=== PATIENT | female | born 1995 | race Two or more races ===

== ENCOUNTER 2021-08-07 09:06 | Outpatient (REF) | payer OTHER, SELFPAY ==
[2021-08-07 09:54] LABS: COVID-19 Test Negative (Negative); IDNOW Serial# 16C4AD1C
== END 2021-08-07 09:07 | disposition home or self-care (01) ==
LOC: HO.LAB 09:06
PROVIDERS: Visit Provider Internal Medicine
DX: Z20.822 Contact with and (suspected) exposure to COVID-19 (principal)
CPT/HCPCS: 36415; 87635; C9803

== ENCOUNTER 2024-02-24 10:11 | Outpatient (AMB) | payer OTHER, SELFPAY ==
--- NOTE | 2024-02-24 10:42 | MHC.OFFWIV ---
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 Started yesterday. 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 While every effort has been made to ensure accuracy, neonatal pediatric nurse errors may have been included. The patient is a 28 year old female who presents to the clinic today with 2 day history of right ankle and lower leg pain after a fall. She slipped and the right ankle hyperextended and then landed hard on her foot. She has pain in the ankle on the right as well as lateral lower leg. She has tried ice and ibuprofen which slightly helped the pain. She is ambulating with a limp. [facility] Social History Patient Tobacco Use Status: Never used Tobacco Review of Systems Const All systems reviewed & are unremarkable except as noted in HPI and below Physical Exam Vital Signs: Last Vital Signs Temp 98.4 F 02/24/24 10:43 Pulse 89 02/24/24 10:43 BP 110/74 02/24/24 10:43 Pulse Ox 99 02/24/24 10:43 Oxygen Delivery Method Room Air 02/24/24 10:43 BMI result Body Mass Index 29.4 Const General: cooperative, healthy appearing, comfortable, no acute distress and alert Orientation/consciousness: patient oriented x3 Limitations: no limitations Skin General skin exam: no rashes or lesions noted, elasticity normal and turgor normal Neuro General: patient oriented x3 Extrem Other: TTP posterior to right lateral maleoulus and to right lateral lower leg. Negative Homans. Strength 5/5 equal bilaterally. General: Yes full ROM, Yes capillary refill normal, Yes normal exam except as noted, No normal gait (antalgic on right) and Yes edema (nonpitting posterior maleolus) Psych Appearance: grossly normal Mental Status: mental status grossly normal Speech and movement: Normal speech and movement present Affect: normal affect Assessment & Plan Assessment & Plan (1) Ankle pain, right: Code(s): M25.571 - Pain in right ankle and joints of right foot Qualifiers: Chronicity: acute Qualified Code(s): M25.571 - Pain in right ankle and joints of right foot Plan: Appears to be low grade sprain, however will obtain x-ray given nature of injury. Pk wrap applied. Advised rest, ice, compression, elevation, and NSAIDs use [id number]. Letter provided for work for rest and leg elevation. Advised follow-up with worsening, or failure to resolve after 2 weeks. Xray results reviewed, no obvious fracture or deformity, awaiting radiology official read. (2) Right leg pain: Code(s): M79.604 - Pain in right leg Plan: We will obtain x-ray to rule out fracture, which if present we will refer to orthopedics. (3) Fall: Code(s): W19.XXXA - Unspecified fall, initial encounter Qualifiers: Encounter type: initial encounter Qualified Code(s): W19.XXXA - Unspecified fall, initial encounter Plan: Mechanical in nature. Advised to increase awareness of surroundings to avoid additional falls. Plan See above for full details and plan. Orders: Orders XR tibia fibula RT 2V Today M79.604 - Pain in right leg Coding Level of Care Code Est Pt Level 4 (33467) Diagnoses Acute right ankle pain M25.571 Chronicity: acute Right leg pain M79.604 Fall, initial encounter W19.XXXA Encounter type: initial encounter
[2024-02-24 10:43] VITALS: BP 110/74; PULSE 89; TEMP 36.9; O2SAT 99; BMI 29.4
== END 2024-02-24 12:19 | disposition home or self-care (01) ==
PROVIDERS: Visit Provider Registered Nurse
DX: M25.571 Pain in right ankle and joints of right foot (principal); M79.604 Pain in right leg; W19.XXXA Unspecified fall, initial encounter
CPT/HCPCS: 99214

== ENCOUNTER 2024-02-24 11:39 | Outpatient (REF) | payer OTHER, SELFPAY ==
--- NOTE | ~2024-02-24 | XR_ITS ---
EXAMINATION: RIGHT TIB-FIB, RIGHT ANKLE CLINICAL INFORMATION: Pain and swelling after injury to posterior lateral malleolus COMPARISON: None available. TECHNIQUE: 3 views ankle, 2 views tib-fib FINDINGS: No significant bone, joint or soft tissue abnormality is seen. XR/XR tibia fibula RT 2V IMPRESSION: Negative exam.
--- NOTE | ~2024-02-24 | XR_ITS ---
EXAMINATION: RIGHT TIB-FIB, RIGHT ANKLE CLINICAL INFORMATION: Pain and swelling after injury to posterior lateral malleolus COMPARISON: None available. TECHNIQUE: 3 views ankle, 2 views tib-fib FINDINGS: No significant bone, joint or soft tissue abnormality is seen. XR/XR ankle RT min 3V IMPRESSION: Negative exam.
== END 2024-02-24 11:40 | disposition home or self-care (01) ==
LOC: HO.HMGCX 11:39
PROVIDERS: Visit Provider Registered Nurse
DX: M79.604 Pain in right leg (principal); M25.571 Pain in right ankle and joints of right foot
CPT/HCPCS: 73590; 73610

== ENCOUNTER 2024-10-17 12:36 | Outpatient (AMB) | payer OTHER, SELFPAY ==
--- OUTSIDE RECORDS SUMMARY | 2024-10-17 12:38 | XMS_ITS | Encounter Summary ---
Author Organization [facility] Address [address] [place] [address] Care Team Providers Care Stock Shaper Name Role Phone Jefferson Orona MD Primary Care Pr ovider Reason for Visit * Reason Comments Hypertension Pt here with c/o htn and dizziness Encounter Details Date Type Department Care Team (Late st Contact Info) Description 09/18/2024 4:22 PM EST - 09/18/2024 7:32 PM EST Emergency [facility] Emergency [address] [place] [address] Discharge Disposition: Home or Self Care Social History Tobacco Use Types Packs/Day Years Used Date Smoking Tobacco: Never Smokeless Tobacco: Never Alcohol Use Standard Drinks/Week Comments No 0 (1 standard drink = 0.6 oz pur e alcohol) Comments Unknown Sex and Gender Information Value Date Recorded Sex Assigned at Female 09/18/2024 7:24 PM EST Legal Sex Female 4:57 PM EST Gender Identity Female 09/18/2024 7:24 PM EST Sexual Orientation Straight 09/18/2024 7: 24 PM EST documented as of this encounter Last Filed Vital Signs Vital Sign Reading Time Taken Comments Blood Pressure 122/81 09/18/2024 5:00 PM EST Pulse 83 09/18/2024 5:00 PM EST Temperature 36.9 ??C (98.4 ??F) 09/18/2024 5:00 PM ES T Respiratory Rate 16 09/18/2024 5:00 PM EST Oxygen Saturation - - Inhaled Oxygen Concentration - - Weight 68 kg (150 lb) 09/18/2024 5:00 PM EST Height 160 cm (5' 3 ) 09/18/2024 5:00 PM EST Body Mass Index 26.57 09/18/2024 5:00 PM EST documented in this encounter Medications at Time of Discharge albuterol HFA (PROAIR HFA ; PROVENTIL HFA ; VENTOLIN HFA) 90 mcg/actuation inhaler Inhale 2 puffs by mouth every 4 (four) hours if needed (Cough or Wheezing). 12/24/2022 clotrimazole-bet amethasone (LOTRISONE) 1-0.05 % cream APPLY TO AFFECTED AREA TWICE A DAY FOR 14 DAYS 04/03/2024 10/13/2024 documented as of this encounter Discharge Disposition Disposition Code Departure Means Destination Home or Self Care documented in this encounter Progress Notes * Art Moulton RN - 09/18/2024 4:58 PM EST Patient states she got dizzy at work and they took her blood pressure and sbp was 150. They sent her home from work and she came to e.[facility]ahraa [facility] n/v/ she does have a headache . documented in this encounter Plan of Treatment Upcoming Encounters Date Type Department Care Team (Late st Contact Info) Description 10/15/2025 8:00 AM EDT Office Visit Adult Medicine [address] [phone] Jefferson Orona MD [address] [place] [id number] Scheduled Orders Name Type Priority Associated Diagnoses Orde r Schedule ECG 12 lead ECG STAT Once for 1 Oc currences starting 09/18/2024 until 09/18/2024 documented as of this encounter Procedures Procedure Name Priority Date/Time Associated Diagnosis Comments XR CHEST 2 VIEWS STAT 09/18/2024 5:27 PM EST [id number], RSV, FLU A AND B QUALITATIVE RT-PCR, INTERNAL LAB STAT 09/18/2024 5:07 PM EST TROPONIN I HIGH SENSITIVITY STAT 09/18/2024 5:07 PM EST CBC WITH AUTO DIFFERENTIAL STAT 09/18/2024 5:07 PM EST CBC AND DIFFERENTIAL STAT 09/18/2024 5:07 PM EST COMPREHENSIVE METABOLIC PANEL STAT 09/18/2024 5:07 PM EST documented in this encounter Results * XR Chest 2 Views (09/18/2024 5:27 PM EST) Anatomical Region Laterality Modality Body Radiographic Jessy ging 09/18/2024 5:49 PM EST Impressions 09/18/2024 5:49 PM EST FINDINGS/IMPRESSION: NO ACUTE FINDINGS. Normal heart size and pulmonary vascularity. ??Lungs are clear and costophrenic angles are sharp. ??No acute osseous abnormality. -------- FINAL REPORT -------- Dictated By: Lilia Mendez Dictated Date: 09/18/2024 17:49 ET Assigned Physician: Lilia Mendez Reviewed and Electronically Signed By: Lilia Mendez Signed Date: 09/18/2024 17:49 ET Workstation ID: [id number] Transcribed By: Self Edit Transcribed Date: 09/18/2024 17:49 ET Narrative 09/18/2024 5:49 PM EST XR CHEST 2 VIEWS INDICATION: pain TECHNIQUE: XR CHEST 2 VIEWS COMPARISON: No priors available. Procedure Note Lilia Mendez MD - 09/18/2024 XR CHEST 2 VIEWS INDICATION: pain TECHNIQUE: XR CHEST 2 VIEWS COMPARISON: No priors available. IMPRESSION: FINDINGS/IMPRESSION: NO ACUTE FINDINGS. Normal heart size and pulmonary vascularity. Lungs are clear andcostophrenic angles are sharp. No acute osseous abnormality. -------- FINAL REPORT -------- Dictated By: Lilia Mendez Dictated Date: 09/18/2024 17:49 ET Assigned Physician: Lilia Mendez Reviewed and Electronically Signed By: Lilia Mendez Signed Date: 09/18/2024 17:49 ET Workstation ID: [id number] Transcribed By: Self Edit Transcribed Date: 09/18/2024 17:49 ET Morelia Lio Lefty Perera DO IMG XR PROCEDURES Final R esult * Troponin I high sensitivity (09/18/2024 5:07 PM EST) [facility] High Sensitivity Troponin I <3 <=54 ng/L LAB CHEMISTRY METHOD 09/18/2024 6:[address] [facility] Blood Venous blood specimen / Unknown Venipuncture / Unknown 09/18/2024 5:07 PM EST 09/18/2024 5:[address] [facility] - 09/18/2024 6:01 PM EST High levels of biotin in samples may falsely decrease hsTroponin values. ??Use caution when interpreting hsTroponin results in patients taking biotin who exhibit renal impairment (eGFR <60) or in patients taking more than 20 mg/day of biotin. Morelia Perera DO LAB BLOOD ORDERABLES Becki l Result [facility] [address] [place] [address], [place] [phone] * (ABNORMAL) CBC auto differential (09/18/2024 5:07 PM EST) [facility] WBC 9.6 4.8 - 10.8 K/mcL LAB HEMETOLOGY METHOD 09/18/2024 5:[address] [facility] RBC 4.30 3.80 - 4.80 M/mcL LAB HEMETOLOGY METHOD 09/18/2024 5:[address] [facility] Hemoglobin 10.5(L) 11.5 - 16.0 g/dL LAB HEMETOLOGY METHOD 09/18/2024 5:[address] [facility] Hematocrit 34.1(L) 35.0 - 47.0 % LAB HEMETOLOGY METHOD 09/18/2024 5:36 PM [facility] MCV 78.6(L) 79.0 - 98.0 FL LAB HEMETOLOGY METHOD 09/18/2024 5:36 PM [facility] MCH 24.2(L) 27.0 - 32.0 pcg LAB HEMETOLOGY METHOD 09/18/2024 5:36 PM [facility] MCHC 30.8(L) 32.0 - 37.0 g/dL LAB HEMETOLOGY METHOD 09/18/2024 5:36 PM [facility] RDW 13.4 11.0 - 15.0 % LAB HEMETOLOGY METHOD 09/18/2024 5:36 PM [facility] Platelets 246 130 - 400 K/mcL LAB HEMETOLOGY METHOD 09/18/2024 5:36 PM [facility] MPV 12.1(H) 7.0 - 11.0 FL LAB HEMETOLOGY METHOD 09/18/2024 5:36 PM [facility] NRBC 0.0 <1.0 % LAB HEMETOLOGY METHOD 09/18/2024 5:36 PM [facility] NRBC Absolute 0.00 <0.10 K/mcL LAB HEMETOLOGY METHOD 09/18/2024 5:36 PM [facility] Neutrophils Relative 66.0 % LAB HEMETOLOGY METHOD 09/18/2024 5:36 PM [facility] Lymphocytes Relative 24.7 % LAB HEMETOLOGY METHOD 09/18/2024 5:36 PM [facility] Monocytes Relative 7.4 % LAB HEMETOLOGY METHOD 09/18/2024 5:36 PM [facility] Eosinophils Relative 0.8 % LAB HEMETOLOGY METHOD 09/18/2024 5:36 PM [facility] Basophils Relative 0.7 % LAB HEMETOLOGY METHOD 09/18/2024 5:[address] [facility] Immature Granulocytes Relative 0.4 % LAB HEMETOLOGY METHOD 09/18/2024 5:36 PM [facility] Neutrophils Absolute 6.31 1.50 - 7.00 K/mcL LAB HEMETOLOGY METHOD 09/18/2024 5:[address] [facility] Lymphocytes Absolute 2.37 1.00 - 5.00 K/mcL LAB HEMETOLOGY METHOD 09/18/2024 5:[address] [facility] Monocytes Absolute 0.71 0.20 - 1.00 K/mcL LAB HEMETOLOGY METHOD 09/18/2024 5:[address] [facility] Eosinophils Absolute 0.08 0.00 - 0.50 K/mcL LAB HEMETOLOGY METHOD 09/18/2024 5:[address] [facility] Basophils Absolute 0.07 0.00 - 0.20 K/mcL LAB HEMETOLOGY METHOD 09/18/2024 5:36 PM [facility] Immature Granulocytes Absolute 0.04(H) 0.00 - 0.03 K/mcL LAB HEMETOLOGY METHOD 09/18/2024 5:[address] [facility] Blood Venous blood specimen / Unknown Venipuncture / Unknown 09/18/2024 5:07 PM EST 09/18/2024 5:29 PM EST us Morelia Perera DO LAB BLOOD ORDERABLES Becki l Result [facility] [address] [place] [address], * [id number], RSV, Influenza A and B qualitative RT-PCR (09/18/2024 5:07 PM EST) Pathologist [facility] Influenza A PCR Not Detected Not Detected LAB MICROBIOLOGY METHOD 09/18/2024 6:[address] [facility] Influenza B PCR Not Detected Not Detected LAB MICROBIOLOGY METHOD 09/18/2024 6:[address] [facility] RSV PCR Not Detected Not Detected LAB MICROBIOLOGY METHOD 09/18/2024 6:[address] [facility] SARS COV-2 Not Detected Not Detected LAB MICROBIOLOGY METHOD 09/18/2024 6:08 PM [facility] Swab Both anterior nares / Unknown Non-blood Collection / Unknown 09/18/2024 5:07 PM EST 09/18/2024 5:[address] [facility] - 09/18/2024 6:08 PM EST Disclaimer: ??Testing was performed using the [employer] GeneXpert Xpress SARS-CoV-2 _Flu_RSV PLUS PCR assay. ??The manner in which this information is used to guide patient care is the responsibility of the healthcare provider. ??Results should be correlated with the clinical history, epidemiological data, and other data available to the clinician evaluating the patient. ??Negative results do not preclude infection. ??This test has been authorized by the FDA under an Emergency Use Authorization (EUA). ??This test is only authorized for the duration of time the declaration that circumstances exist justifying the authorization of the emergency use of in vitro diagnostic tests for detection of SARS-CoV-2 virus and/or diagnosis of COVID-19 infection under section 564 (b) (1) of the Act, 21 U.S.C 360bbb-3 (b) (1), unless the authorization is terminated or revoked sooner. ?? Reference Range: Not Detected Fact sheet for Healthcare providers can be found at https://www.fda.gov/media/231497/download. ?? Fact sheet for Healthcare patients can be found at https://www.fda.gov/media/554171/download. Morelia Perera DO LAB MICROBIOLOGY - GENERA L ORDERABLES Final Result [facility] [address] [place] [address], [place] [phone] * (ABNORMAL) Comprehensive metabolic panel (09/18/2024 5:07 PM EST) Sodium 136 133 - 145 mmol/L LAB CHEMISTRY METHOD 09/18/2024 6:08 PM [facility] Potassium 3.7 3.5 - 5.5 mmol/L LAB CHEMISTRY METHOD 09/18/2024 6:08 PM [facility] Chloride 108 96 - 110 mmol/L LAB CHEMISTRY METHOD 09/18/2024 6:08 PM [facility] CO2 25 21 - 32 mmol/L LAB CHEMISTRY METHOD 09/18/2024 6:08 PM [facility] Anion Gap 3 3 - 11 LAB CHEMISTRY METHOD 09/18/2024 6:08 PM [facility] Glucose 83 70 - 100 mg/dL LAB CHEMISTRY METHOD 09/18/2024 6:08 PM [facility] BUN 14 5 - 25 mg/dL LAB CHEMISTRY METHOD 09/18/2024 6:08 PM [facility] Creatinine 0.74 0.50 - 1.10 mg/dL LAB CHEMISTRY METHOD 09/18/2024 6:08 PM [facility] eGFR 114 >=60 mL/min/1. 73m2 LAB CHEMISTRY METHOD 09/18/2024 6:08 PM [facility] Comment:Calculation based on the??Chronic Kidney Disease Epidemiology Collaboration (CKD-EPI) equation refit??without adjustment for race. BUN/Creatinine Ratio 18.9 LAB CHEMISTRY METHOD 09/18/2024 6:08 PM [facility] Calcium 9.4 8.5 - 10.5 mg/dL LAB CHEMISTRY METHOD 09/18/2024 6:08 PM [facility] AST (SGOT) 17 10 - 42 unit/L LAB CHEMISTRY METHOD 09/18/2024 6:08 PM [facility] ALT (SGPT) 14 10 - 60 unit/L LAB CHEMISTRY METHOD 09/18/2024 6:[address] [facility] Alkaline Phosphatase 29(L) 42 - 121 unit/L LAB CHEMISTRY METHOD 09/18/2024 6:[address] [facility] Total Protein 7.5 6.0 - 8.0 g/dL LAB CHEMISTRY METHOD 09/18/2024 6:[address] [facility] Albumin 4.0 3.2 - 5.0 g/dL LAB CHEMISTRY METHOD 09/18/2024 6:08 PM [facility] Total Bilirubin 0.7 0.0 - 1.4 mg/dL LAB CHEMISTRY METHOD 09/18/2024 6:08 PM [facility] Blood Venous blood specimen / Unknown Venipuncture / Unknown 09/18/2024 5:07 PM EST 09/18/2024 5:29 PM EST us John Lio Perera DO LAB BLOOD ORDERABLES Becki l Result [facility] [address] [place] [address], documented in this encounter Visit Diagnoses Not on filedocumented in this encounter Additional Health Concerns Infection Onset Date Last Indicated Resolved Time Respiratory Rule-Out 09/18/2024 09/18/2024 025 6:08 PM EST COVID-19 Rule-Out 09/18/2024 09/18/2024 09/18/2024 6:08 PM EST documented as of this encounter Care Teams Stock Shaper Relationship Specialty Start Date End Date Jefferson Orona MD [address] [place] [id number] PCP - General 08/02/22 documented as of this encounter
--- OUTSIDE RECORDS SUMMARY | 2024-10-17 12:38 | XMS_ITS | Clinical Summary ---
Author Organization [facility] [address] [facility] Address [address] [place], [place] Phone Care Team Providers Care Director Market Intelligence Name Role Phone Jefferson Orona MD Primary Care Pr ovider Allergies No known active allergies Medications albuterol HFA (PROAIR HFA ; PROVENTIL HFA ; VENTOLIN HFA) 90 mcg/actuation inhaler Inhale 2 puffs by mouth every 4 (four) hours if needed (Cough or Wheezing). 3 Active IRON, FERROUS SULFATE, ORAL Take by mouth 1 (one) time each day. Active clotrimazole-b etamethasone (LOTRISONE) 1-0.05 % cream APPLY TO AFFECTED AREA TWICE A DAY FOR 14 DAYS 4 025 Discontinued Active Problems Problem Noted Date Diagnosed Date Overweight (BMI 25.0-29.9) 12/24/2022 Iron deficiency anemia 10/07/2019 Allergic rhinitis due to pollen 10/07/2019 Acne 10/07/2019 Asthma 03/28/2016 Encounters Date Type Department Care Team Description 10/13/2024 10:58 AM EDT - 10/13/2024 11:59 PM EDT Hospital Encounter ESTHER Velasco [address] [place] [address] Acute right ankle pain Discharge Disposition: Home or Self Care 10/13/2024 10:00 AM EDT Office Visit Adult Medicine [address] [phone] Radha Payne PA Annual physical exam (Primary Dx); Iron deficiency anemia, unspecified iron deficiency anemia type; Acute right ankle pain; Acne, unspecified acne type 09/18/2024 4:22 PM EST - 09/18/2024 7:32 PM EST Emergency [facility] Emergency [address] [place] [address] Discharge Disposition: Home or Self Care from Last 3 Months Immunizations Name Administration Dates Next Due DTaP (Infanrix) 6wks to less than 7yo ,01/06/1999,1997,10/25,1997 [id number] (Pentacel) 2mo to less than 5yo 10/25/1998,1997,1997,08/24 HPV, Quadrivalent 10/19/2009,2009,04/18/20 09 Hepatitis A Pediatric (Havri x; Vaqta) 12mo to less than 19yo 06/18/2012 Hepatitis B Pediatric (Enger ix B; Recombivax HB) to less than 20 yo 04/04/1998,1997,1997 IPV Inactivated polio (Ipol) 6wks and older 06/22/2002,07/05/1998,1997,08/24 Influenza Quadravalent, MDCK , 0.5ml, with preservative (Flucelvax) 6mo and older 07/06/2024,04/26/2017 Influenza trivalent, 0.5mL, preservative free (Fluarix; FluLaval; Fluzone) ages 6mo and older (Afluria) 3 years and older 05/18/2020,05/13/2015 Influenza, Unspecified 07/17/2021 MMR, measles mumps and rubel la Live (Priorix; M-M-R II) 12mo and older 06/20/2002,10/25/1998 Meningococcal MCV4P 05/24/2011 Pfizer SARS-CoV-2 COVID-19, mRNA, LNP-S, preservative free 12/30/2020,12/09/2020 Pneumococcal polysaccharide 23 valent (Pneumovax 23) 2yo and older 01/20/2018 Tdap Tetanus diptheria acell ular pertussis (Boostrix; Adacel) 7yo and older 09/15/2021,05/24/2011 Varicella live (Varivax) 12m o and older 04/18/2009,07/05/1998 Surgical History Surgery Date Site/Laterality Comments TONSILLECTOMY 2002 PROCEDURE: HISTORICAL TONSILLECTOMY OTHER SURGICAL HISTORY 2001 PROCEDURE: ---- OTHER ----; COMMENT: removal right lymphnode post cervical OTHER SURGICAL HISTORY Left PROCEDURE: [place] EXCISION NAIL MATRIX PERMANENT REMOVAL; COMMENT: left hallux lateral border by Dr. Harden OTHER SURGICAL HISTORY 2011 PROCEDURE: HISTORY OTHER; COMMENT: stye removal Medical History Medical History Date Comments Asthma 03/28/2016 DX:Asthma Acne 10/07/2019 DX:Acne Allergic rhinitis due to pollen 10/07/2019 DX:Allergic rhinitis due to pollen Iron deficiency anemia 10/07/2019 DX:Iron d eficiency anemia Dermatophytosis of nail DX:[place] tophytosis of nail Family History Medical History Relation Name Comments Other: Asthma, ADHD Brother Hypertension Father Hypertension Maternal Grandfather Asthma Maternal Grandmother Diabetes Maternal Grandmother Hypertension Maternal Grandmother Other: heart disease Maternal Grandmother Migraines Mother Other: hypotension Mother Diabetes Paternal Grandfather Heart attack Paternal Grandfather Hypertension Paternal Grandfather Asthma Sister 1 Other: thyroid cancer Sister 2 Breast cancer Neg Hx Colon cancer Neg Hx Relation Name Status Comments Brother Father Maternal Grandfather Maternal Grandmother Mother Paternal Grandfather Sister 1 Sister 2 Social History Tobacco Use Types Packs/Day Years Used Date Smoking Tobacco: Never Smokeless Tobacco: Never Tobacco Cessation:Counseling Given: Not Answered Alcohol Use Standard Drinks/Week Comments No 0 (1 standard drink = 0.6 oz pur e alcohol) Food Access & Nutrition Answer Date Rec orded Do you have access to a vari ety of food including fruits and vegetables? Yes 10/13/2024 Access to Healthcare Answer Date Record ed Within the last 3 months, brynn garcia many times did you visit the emergency department for your medical care? 1 10/13/2024 Health Literacy Answer Date Recorded How often do you need to hav e someone help you when you read instructions, pamphlets, or other written material from your doctor or pharmacy? Never 10/13/2024 Caregiver: How often do you need to have someone help you when you read instructions, pamphlets, or other written material from your doctor or pharmacy? Not on file 10/13/2024 Financial Risk Answer Date Recorded How hard is it for you to pa y for the very basics like food, housing, medical care, and air conditioning / heating? Not very hard 10/13/2024 Transportation Answer Date Recorded Has the lack of transportati on kept you from meetings, work, or from getting things needed for daily living? No Has the lack of transportati on kept you from medical appointments or from getting medications? No 10/13/2024 Social Isolation Answer Date Recorded How often do you feel lonely or isolated from th ose around you? Never 10/13/2024 Food Risk Answer Date Recorded Within the past 12 months we worried whether our food would run out before we got money to buy more. Never true 10/13/2024 Within the past 12 months th e food we bought just didn't last and we didn't have money to get more. Never true 10/13/2024 Dependent Care Answer Date Recorded Do you need help finding or paying for care for your loved ones. For example, childbirth educator or elderly care for an older adult? No 10/13/2024 Education Answer Date Recorded Do you think completing more education or training, like finishing a GED, going to college, or learning a trade, would be helpful for you? N/A 10/13/2024 Employment and Income Answer Date Recor ded During the last four weeks, have you been actively looking for work? No 10/13/2024 Living Situation Answer Date Recorded What is your living situation? 0 10/13/2024 Comments No Sex and Gender Information Value Date Recorded Sex Assigned at Female 09/18/2024 7:24 PM EST Legal Sex Female 4:57 PM EST Gender Identity Female 09/18/2024 7:24 PM EST Sexual Orientation Straight 09/18/2024 7: 24 PM EST Obstetrics History Last Filed Vital Signs Vital Sign Reading Time Taken Comments Blood Pressure 125/81 10/13/2024 10:03 AM EDT Pulse 88 10/13/2024 10:03 AM EDT Temperature 36.6 ??C (97.8 ??F) 10/13/2024 10:03 AM E DT Respiratory Rate 14 10/13/2024 10:03 AM EDT Oxygen Saturation 99% 10/13/2024 10:03 AM EDT Inhaled Oxygen Concentration - - Weight 74.8 kg (165 lb) 10/13/2024 10:03 AM EDT Height 162.6 cm (5' 4 ) 10/13/2024 10:03 AM EDT Body Mass Index 28.32 10/13/2024 10:03 AM EDT Plan of Treatment Upcoming Encounters Date Type Department Care Team (Late st Contact Info) Description 10/15/2025 8:00 AM EDT Office Visit Adult Medicine [facility] [address] [place] [phone] Jefferson Orona MD [address] [place] [phone] Health Maintenance Due Date Last Done Comments Hepatitis B Vaccines (3 of 3 - 3-dose series) 05/30/1998 04/04/1998, 1997, 1997 Hepatitis A Vaccines (2 of 2 - 2-dose series) 12/16/2012 06/18/2012 Cervical Cancer Screening: Pap Smear 2018 Pneumococcal Vaccine: Pediatrics (0 to 5 Years) and At-Risk Patients (6 to 64 Years) (2 of 2 - PCV) 01/20/2019 01/20/2018 HIV Screening 07/04/2022 COVID-19 Vaccine ( season) 2024 09/30/2021, 12/30/2020, 12/09/2020 Depression Screening 10/13/2025 10/13/2024, 04/09/20 24 Social Influencers of Health Screening 10/13/2025 10/13/2024 Cholesterol Screening (Lipid Panel) 10/13/2029 10/13/2024, 08/22/2021 DTaP,Tdap,and Td Vaccines (8 - Td or Tdap) 09/15/2031 09/15/2021, 05/24/2011, 06/22/2002, Additional history exists HIB Vaccines Completed 10/25/1998, 12/04, 1997, Additional history exists MMR Vaccines Completed 06/20/2002, 10/25/1998 IPV Vaccines Completed 06/22/2002, 10/04, 07/05/1998, Additional history exists Varicella Vaccines Completed 04/18/2009, 07/05/1998 HPV Vaccines Completed 10/19/2009, 06/05, 04/18/2009 Meningococcal ACWY Vaccine Aged Out 05/24/2011 N o longer eligible based on patient's age to complete this topic Influenza Vaccine Completed 07/06/2024, , 05/10/2022, Additional history exists Hepatitis C Screening Completed 10/13/2024 Meningococcal B Vacine Aged Out No lo nger eligible based on patient's age to complete this topic RSV Immunization Patients Under 20 months Aged Out No longer eligible based on patient's age to complete this topic Procedures Procedure Name Priority Date/Time Associated Diagnosis Comments XR ANKLE 3+ VIEWS RIGHT Routine 10/13/2024 11:06 AM EDT Acute right ankle pain COMPLETE BLOOD COUNT Routine 10/13/2024 10:52 AM EDT Annual physical exam FERRITIN Routine 10/13/2024 10:52 AM EDT Annual physical exam IRON AND TIBC Routine 10/13/2024 10:52 AM EDT Annual physical exam LIPID PANEL WITH REFLEX TO DIRECT LDL Routine 10/13/2024 10:52 AM EDT Annual physical exam COMPREHENSIVE METABOLIC PANEL Routine 10/13/2024 10:52 AM EDT Annual physical exam HEPATITIS C ANTIBODY Routine 10/13/2024 10:52 AM EDT Annual physical exam XR CHEST 2 VIEWS STAT 09/18/2024 5:27 PM EST TROPONIN I HIGH SENSITIVITY STAT 09/18/2024 5:07 PM EST CBC WITH AUTO DIFFERENTIAL STAT 09/18/2024 5:07 PM EST COMPREHENSIVE METABOLIC PANEL STAT 09/18/2024 5:07 PM EST CBC AND DIFFERENTIAL STAT 09/18/2024 5:07 PM EST [id number], RSV, FLU A AND B QUALITATIVE RT-PCR, INTERNAL LAB STAT 09/18/2024 5:07 PM EST DEPRESSION SCREENING Routine 04/09/2024 from Last 3 Months or Most Recently Relevant to Health Maintenance Results * XR Ankle 3+ Views Right (10/13/2024 11:06 AM EDT) Anatomical Region Laterality Modality Lower Extremities, Ankle Right Radiogr aphic Imaging 10/13/2024 5:23 PM EDT Impressions 10/13/2024 5:24 PM EDT No acute findings. -------- FINAL REPORT -------- Dictated By: Miguelina Piper Dictated Date: 10/13/2024 17:23 ET Assigned Physician: Miguelina Piper Reviewed and Electronically Signed By: Miguelina Piper Signed Date: 10/13/2024 17:24 ET Workstation ID: [id number] Transcribed By: Self Edit Transcribed Date: 10/13/2024 17:23 ET Narrative 10/13/2024 5:24 PM EDT RIGHT ANKLE, 3 VIEWS HISTORY: Right ankle pain. PRIORS: None. FINDINGS: No fracture, malalignment, or foreign body is seen. There are superficial varicosities. The ankle mortise appears normally aligned. Procedure Note Miguelina Piper MD - 10/13/2024 RIGHT ANKLE, 3 VIEWS HISTORY: Right ankle pain. PRIORS: None. FINDINGS: No fracture, malalignment, or foreign body is seen. There are superficial varicosities. The ankle mortise appears normally aligned. IMPRESSION: No acute findings. -------- FINAL REPORT -------- Dictated By: Miguelina Piper Dictated Date: 10/13/2024 17:23 ET Assigned Physician: Miguelina Piper Reviewed and Electronically Signed By: Miguelina Piper Signed Date: 10/13/2024 17:24 ET Workstation ID: [id number] Transcribed By: Self Edit Transcribed Date: 10/13/2024 17:23 ET us Radha RUSS IMG XR PROCEDURES Final Resul t * Hepatitis C antibody (10/13/2024 10:52 AM EDT) [facility] Hepatitis C Antibody Negative Negative LAB CHEMISTRY METHOD 10/13/2024 1:21 PM EDT [facility] Blood Venous blood specimen / Unknown Venipuncture / Unknown 10/13/2024 10:52 AM EDT 10/13/2024 10:52 AM EDT Radha RUSS LAB BLOOD ORDERABLES Final Re sult [facility] [address] [place] [address], [place] [phone] * Lipid panel with reflex to direct LDL (10/13/2024 10:52 AM EDT) [facility] Cholesterol 121 0 - 200 mg/dL LAB CHEMISTRY METHOD 10/13/2024 1:06 PM EDT [facility] Triglycerides 45 0 - 150 mg/dL LAB CHEMISTRY METHOD 10/13/2024 1:06 PM EDT [facility] Comment:Results verified by repeat testing HDL 52 >=40 mg/dL LAB CHEMISTRY METHOD 10/13/2024 1:06 PM EDT [facility] LDL Calculated 60 0 - 100 mg/dL LAB CHEMISTRY METHOD 10/13/2024 1:06 PM EDT [facility] VLDL Cholesterol Sumit 9 mg/dL LAB CHEMISTRY METHOD 10/13/2024 1:06 PM EDT [facility] Non HDL Chol. (LDL+VLDL) 69 <145 mg/dL LAB CHEMISTRY METHOD 10/13/2024 1:06 PM EDT [facility] Chol/HDL Ratio 2.3 0.0 - 4.4 LAB CHEMISTRY METHOD 10/13/2024 1:06 PM EDT [facility] Blood Venous blood specimen / Unknown Venipuncture / Unknown 10/13/2024 10:52 AM EDT 10/13/2024 10:52 AM EDT Radha RUSS LAB BLOOD ORDERABLES Final Re sult [facility] [address] [place] [address], [place] [phone] * Iron and TIBC (10/13/2024 10:52 AM EDT) Iron 83 40 - 150 mcg/dL LAB CHEMISTRY METHOD 10/13/2024 12:30 PM EDT [facility] TIBC 311 250 - 450 mcg/dL LAB CHEMISTRY METHOD 10/13/2024 12:30 PM EDT [facility] Iron Saturation 27 15 - 50 % LAB CHEMISTRY METHOD 10/13/2024 12:30 PM EDT [facility] Blood Venous blood specimen / Unknown Venipuncture / Unknown 10/13/2024 10:52 AM EDT 10/13/2024 10:52 AM EDT Radha RUSS LAB BLOOD ORDERABLES Final Re sult [facility] [address] [place] [address], [place] [phone] * (ABNORMAL) Complete blood count (10/13/2024 10:52 AM EDT) WBC 8.2 4.8 - 10.8 K/mcL LAB HEMETOLOGY METHOD 10/13/2024 12:28 PM EDT [facility] RBC 4.70 3.80 - 4.80 M/mcL LAB HEMETOLOGY METHOD 10/13/2024 12:28 PM [facility] Hemoglobin 11.3(L) 11.5 - 16.0 g/dL LAB HEMETOLOGY METHOD 10/13/2024 12:28 PM [facility] Hematocrit 37.6 35.0 - 47.0 % LAB HEMETOLOGY METHOD 10/13/2024 12:28 PM [facility] MCV 80.0 79.0 - 98.0 FL LAB HEMETOLOGY METHOD 10/13/2024 12:28 PM [facility] MCH 24.0(L) 27.0 - 32.0 pcg LAB HEMETOLOGY METHOD 10/13/2024 12:28 PM [facility] MCHC 30.1(L) 32.0 - 37.0 g/dL LAB HEMETOLOGY METHOD 10/13/2024 12:28 PM [facility] RDW 13.7 11.0 - 15.0 % LAB HEMETOLOGY METHOD 10/13/2024 12:28 PM [facility] Platelets 263 130 - 400 K/mcL LAB HEMETOLOGY METHOD 10/13/2024 12:28 PM [facility] MPV 12.3(H) 7.0 - 11.0 FL LAB HEMETOLOGY METHOD 10/13/2024 12:28 PM [facility] NRBC 0.0 <1.0 % LAB HEMETOLOGY METHOD 10/13/2024 12:28 PM [facility] NRBC Absolute 0.00 <0.10 K/mcL LAB HEMETOLOGY METHOD 10/13/2024 12:28 PM [facility] Blood Venous blood specimen / Unknown Venipuncture / Unknown 10/13/2024 10:52 AM EDT 10/13/2024 10:52 AM EDT us Radha RUSS LAB BLOOD ORDERABLES Final Re sult [facility] [address] [place] [address], [place] [phone] * Ferritin (10/13/2024 10:52 AM EDT) [facility] Ferritin 47 8 - 252 ng/mL LAB CHEMISTRY METHOD 10/13/2024 12:31 PM EDT [facility] Blood Venous blood specimen / Unknown Venipuncture / Unknown 10/13/2024 10:52 AM EDT 10/13/2024 10:52 AM EDT us Radha RUSS LAB BLOOD ORDERABLES Final Re sult Performing Organization Address City/[facility]/ZIP Co de Phone Number [facility] [address] [place] [address], [place] [phone] * (ABNORMAL) Comprehensive metabolic panel (10/13/2024 10:52 AM EDT) Only the most recent of2 resultswithin the time period is included. [facility] Sodium 138 133 - 145 mmol/L LAB CHEMISTRY METHOD 10/13/2024 1:06 PM EDT [facility] Potassium 3.9 3.5 - 5.5 mmol/L LAB CHEMISTRY METHOD 10/13/2024 1:06 PM EDT [facility] Chloride 107 96 - 110 mmol/L LAB CHEMISTRY METHOD 10/13/2024 1:06 PM EDT [facility] CO2 26 21 - 32 mmol/L LAB CHEMISTRY METHOD 10/13/2024 1:06 PM EDT [facility] Anion Gap 5 3 - 11 LAB CHEMISTRY METHOD 10/13/2024 1:06 PM EDT [facility] Glucose 103(H) 70 - 100 mg/dL LAB CHEMISTRY METHOD 10/13/2024 1:06 PM [facility] BUN 10 5 - 25 mg/dL LAB CHEMISTRY METHOD 10/13/2024 1:06 PM [facility] Creatinine 0.69 0.50 - 1.10 mg/dL LAB CHEMISTRY METHOD 10/13/2024 1:06 PM [facility] eGFR 122 >=60 mL/min/1. 73m2 LAB CHEMISTRY METHOD 10/13/2024 1:06 PM [facility] Comment:Calculation based on the??Chronic Kidney Disease Epidemiology Collaboration (CKD-EPI) equation refit??without adjustment for race. BUN/Creatinine Ratio 14.5 LAB CHEMISTRY METHOD 10/13/2024 1:06 PM [facility] Calcium 9.2 8.5 - 10.5 mg/dL LAB CHEMISTRY METHOD 10/13/2024 1:06 PM [facility] AST (SGOT) 11 10 - 42 unit/L LAB CHEMISTRY METHOD 10/13/2024 1:06 PM [facility] ALT (SGPT) 20 10 - 60 unit/L LAB CHEMISTRY METHOD 10/13/2024 1:06 PM [facility] Alkaline Phosphatase 33(L) 42 - 121 unit/L LAB CHEMISTRY METHOD 10/13/2024 1:06 PM [facility] Total Protein 7.9 6.0 - 8.0 g/dL LAB CHEMISTRY METHOD 10/13/2024 1:06 PM [facility] Albumin 4.0 3.2 - 5.0 g/dL LAB CHEMISTRY METHOD 10/13/2024 1:06 PM [facility] Total Bilirubin 0.7 0.0 - 1.4 mg/dL LAB CHEMISTRY METHOD 10/13/2024 1:06 PM [facility] Blood Venous blood specimen / Unknown Venipuncture / Unknown 10/13/2024 10:52 AM EDT 10/13/2024 10:52 AM EDT Radha RUSS LAB BLOOD ORDERABLES Final Re sult [facility] [address] [place] [address], [place] [phone] * XR Chest 2 Views (09/18/2024 5:27 [...] Signed Date: 09/18/2024 17:49 ET Workstation ID: [id number] Transcribed By: Self Edit Transcribed Date: 09/18/2024 [...] Signed Date: 09/18/2024 17:49 ET Workstation ID: [id number] Transcribed By: Self Edit Transcribed Date: 09/18/2024 17:49 ET us Morelia Perera DO IMG XR PROCEDURES Final R esult * [id number], RSV, Influenza A and B qualitative RT-PCR (09/18/2024 5:07 PM EST) Influenza A PCR Not Detected Not Detected LAB MICROBIOLOGY METHOD 09/18/2024 6:08 PM EST [facility] Influenza B PCR Not Detected Not Detected LAB MICROBIOLOGY METHOD 09/18/2024 6:08 PM EST [facility] RSV PCR Not Detected Not Detected LAB MICROBIOLOGY METHOD 09/18/2024 6:08 PM EST [facility] SARS COV-2 Not Detected Not Detected LAB MICROBIOLOGY METHOD 09/18/2024 6:08 PM [facility] Swab Both anterior nares / Unknown Non-blood Collection / Unknown 09/18/2024 5:07 PM EST 09/18/2024 5:[address] [facility] - 09/18/2024 6:08 PM EST Disclaimer: ??Testing was performed using the [employer] GeneXpert Xpress SARS-CoV-2 _Flu_RSV PLUS PCR assay. [...] for Healthcare providers can be found at https://www.fda.gov/media/951088/download. ?? Fact sheet for Healthcare patients can be found at https://www.fda.gov/media/668397/download. us Thibodeaux Brynn Lefty Perera LAB MICROBIOLOGY - GENERA L ORDERABLES Final Result Performing Organization Address [facility]/ZIP Co de Phone Number [facility] [address] [place] [address], [place] [phone] * Troponin I high sensitivity (09/18/2024 5:07 PM EST) [facility] High Sensitivity Troponin I <3 <=54 ng/L LAB CHEMISTRY METHOD 09/18/2024 6:01 PM EST [facility] Blood Venous blood specimen / Unknown Venipuncture / Unknown 09/18/2024 5:07 PM EST 09/18/2024 5:29 PM EST Narrative [facility] - 09/18/2024 6:01 PM EST High levels of biotin in samples may falsely decrease hsTroponin values. ??Use caution when interpreting hsTroponin results in patients taking biotin who exhibit renal impairment (eGFR <60) or in patients taking more than 20 mg/day of biotin. us Morelia Perera DO LAB BLOOD ORDERABLES Becki l Result Performing Organization Address [facility] Co de Phone Number [facility] [address] [place] [address], [place] [phone] * (ABNORMAL) CBC auto differential (09/18/2024 5:07 PM EST) [facility] WBC 9.6 4.8 - 10.8 K/mcL LAB HEMETOLOGY METHOD 09/18/2024 5:36 PM EST [facility] RBC 4.30 3.80 - 4.80 M/mcL LAB HEMETOLOGY METHOD 09/18/2024 5:36 PM EST [facility] Hemoglobin 10.5(L) 11.5 - 16.0 g/dL LAB HEMETOLOGY METHOD 09/18/2024 5:36 PM [facility] Hematocrit 34.1(L) 35.0 - 47.0 % LAB HEMETOLOGY METHOD 09/18/2024 5:36 PM [facility] MCV 78.6(L) 79.0 - 98.0 FL LAB HEMETOLOGY METHOD 09/18/2024 5:36 PM [facility] MCH 24.2(L) 27.0 - 32.0 pcg LAB HEMETOLOGY METHOD 09/18/2024 5:36 PM [facility] MCHC 30.8(L) 32.0 - 37.0 g/dL LAB HEMETOLOGY METHOD 09/18/2024 5:36 PM [facility] RDW 13.4 11.0 - 15.0 % LAB HEMETOLOGY METHOD 09/18/2024 5:36 PM [facility] Platelets 246 130 - 400 K/mcL LAB HEMETOLOGY METHOD 09/18/2024 5:36 PM [facility] MPV 12.1(H) 7.0 - 11.0 FL LAB HEMETOLOGY METHOD 09/18/2024 5:36 PM [facility] NRBC 0.0 <1.0 % LAB HEMETOLOGY METHOD 09/18/2024 5:36 PM [facility] NRBC Absolute 0.00 <0.10 K/mcL LAB HEMETOLOGY METHOD 09/18/2024 5:36 PM [facility] Neutrophils Relative 66.0 % LAB HEMETOLOGY METHOD 09/18/2024 5:36 PM [facility] Lymphocytes Relative 24.7 % LAB HEMETOLOGY METHOD 09/18/2024 5:36 PM [facility] Monocytes Relative 7.4 % LAB HEMETOLOGY METHOD 09/18/2024 5:36 PM [facility] Eosinophils Relative 0.8 % LAB HEMETOLOGY METHOD 09/18/2024 5:36 PM EST [facility] Basophils Relative 0.7 % LAB HEMETOLOGY METHOD 09/18/2024 5:36 PM EST [facility] Immature Granulocytes Relative 0.4 % LAB HEMETOLOGY METHOD 09/18/2024 5:36 PM [facility] Neutrophils Absolute 6.31 1.50 - 7.00 K/mcL LAB HEMETOLOGY METHOD 09/18/2024 5:36 PM EST [facility] Lymphocytes Absolute 2.37 1.00 - 5.00 K/mcL LAB HEMETOLOGY METHOD 09/18/2024 5:36 PM EST [facility] Monocytes Absolute 0.71 0.20 - 1.00 K/mcL LAB HEMETOLOGY METHOD 09/18/2024 5:36 PM EST [facility] Eosinophils Absolute 0.08 0.00 - 0.50 K/mcL LAB HEMETOLOGY METHOD 09/18/2024 5:36 PM EST [facility] Basophils Absolute 0.07 0.00 - 0.20 K/mcL LAB HEMETOLOGY METHOD 09/18/2024 5:36 PM EST [facility] Immature Granulocytes Absolute 0.04(H) 0.00 - 0.03 K/mcL LAB HEMETOLOGY METHOD 09/18/2024 5:36 PM EST [facility] Blood Venous blood specimen / Unknown Venipuncture / Unknown 09/18/2024 5:07 PM EST 09/18/2024 5:29 PM EST us Morelia Perera DO LAB BLOOD ORDERABLES Becki l Result [facility] [address] [place] [address], * Depression Screening (04/09/2024) [facility] Depression Screening Abstracted us Historical Provider HEALTH MAINTENANCE Final Result from Last 3 Months or Most Recently Relevant to Health Maintenance Insurance [facility] Care Teams Director Market Intelligence Relationship Specialty Start Date End Date Jefferson Orona MD [address] [place] [id number] PCP - General 08/02/22
--- OUTSIDE RECORDS SUMMARY | 2024-10-17 12:38 | XMS_ITS | Encounter Summary ---
Author Organization [facility] Address [address] [place] [address] Care Team Providers Care Application Support Administrator Name Role Phone Jefferson Orona MD Primary Care Pr ovider Reason for Referral * Consultation (Routine) - Pending Review Specialty Diagnoses / Procedures Referred By Contac t Referred To Contact Dermatology Diagnoses Acne, unspecified acne type Radha Payne PA [address] [place] [address] Phone: tel: fax: [address] [address] Phone: tel: fax: Referral ID Status Reason Start Date Expiration Date Visits Requested Visits Authorized [id number] Pending Review Specialty Services Required 10/13/2024 10/13/2025 1 1 * Consultation (Routine) - Authorized Specialty Diagnoses / Procedures Referred By Contact Referred To Contact Obstetrics and Gynecology Diagnoses Annual physical exam Radha Payne PA [address] [place] [address] Phone: tel: fax: Lesli Narvaez MD [address] [place] [address] Phone: tel: fax: Referral ID Status Reason Start Date Expiration Date Visits Requested Visits Authorized [id number] Authorized Specialty Services Required 10/13/2024 10/13/2025 1 1 Reason for Visit * Reason Comments Annual Exam Last pe 12/2022, last obgyn, last vision 2023, last dentist 2023, last tdap 2021, last flu 07/2024 Encounter Details Date Type Department Care Team (Late st Contact Info) Description 10/13/2024 10:00 AM EDT Office Visit Adult Medicine [address] [phone] Radha Payne PA [address] [place] [address] Annual physical exam (Primary Dx); Iron deficiency anemia, unspecified iron deficiency anemia type; Acute right ankle pain; Acne, unspecified acne type Social History Tobacco Use Types Packs/Day Years [...] Record ed Within the last 3 months, ho w many times did you visit the emergency [...] care for your loved ones. 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 She states she had episode of dizziness at work in September. She states her blood pressure was 150 at the time when she was feeling symptomatic. Shewent to [facility] ER but left without being seen by provider. She states she started retaking her dailyiron supplement since then and has been feeling better, no recurrence of symptoms. Lab work from [facility] 09/18 H&H 10.5/34.1. CMP, troponin and COVID/RSV/Flu testing also obtained and normal, CXR with no acute findings Patient reports LMP around 09/20 She reports regular monthly periods, cycle ~4-5 days, cramping associated (takes ibuprofen with relief) Patient states she twisted her ankle at work recently moving something. She reports pain over rightlateral ankle. She states area is swollen. She reports history of right ankle sprain. She denies snap or pop at time of injury She is requesting referral to Dermatology for acne, states she used to see Dermatology in [place] ROS: GENERAL: No malaise, significant weight loss or fever HEENT: No changes in hearing or vision, nose bleeds or other nasal problems NECK: No lumps, goiter, pain or significant neck swelling RESPIRATORY: No cough, wheezing or shortness of breath CARDIOVASCULAR: No chest pain, leg swelling or palpitations BREAST: no lumps, discharge, pain or change in skin GI: No abdominal discomfort, blood in stools or black stools : No dysuria, frequency or incontinence OIL WELL CABLE TOOL DRILLER: No abnormal vaginal bleeding or abnormal vaginal discharge. MUSCULOSKELETAL: No joint pain or swelling, back pain, or muscle pain. SKIN: No lesions, rash or itching PSYCH: No sleep disturbance, mood disorder or recent psychosocial stressors. HEMATOLOGY/LYMPHOLOGY No prolonged bleeding, easy bruisability or swollen nodes ENDOCRINE: No cold or heat intolerance, polyuria, polydipsia or goiter. NEURO: No persistent headache, syncope, seizures, weakness or numbness PAST MEDICAL HISTORY: Patient Active Problem List Diagnosis Date Noted Overweight (BMI 25.0-29.9) 12/24/2022 Iron deficiency anemia 10/07/2019 Allergic rhinitis due to pollen 10/07/2019 Acne 10/07/2019 Asthma 03/28/2016 IMMUNIZATIONS/INJECTIONS: Most Recent Immunizations Administered Date(s) Administered DTaP (Infanrix) 6wks to less than 7yo 06/22/2002 EPmG-DCR-WTK (Pentacel) 2mo to less than 5yo 10/25/1998 HPV, Quadrivalent 10/19/2009 Hepatitis A Pediatric (Havrix; Vaqta) 12mo to less than 19yo 06/18/2012 Hepatitis B Pediatric (Engerix B; Recombivax HB) to less than 20 yo 04/04/1998 IPV Inactivated polio (Ipol) 6wks and older 06/22/2002 Influenza Quadravalent, MDCK, 0.5ml, with preservative (Flucelvax) 6mo and older 07/06/2024 Influenza trivalent, 0.5mL, preservative free (Fluarix; FluLaval; Fluzone) ages 6mo and older (Afluria) 3 years and older 05/18/2020 Influenza, Unspecified 07/17/2021 MMR, measles mumps and rubella Live (Priorix; M-M-R II) 12mo and older 06/20/2002 Meningococcal MCV4P 05/24/2011 Pfizer (ages 12 & older) SARS-CoV-2 COVID-19, mRNA, LNP-S, kayla-sucrose, preservative free 09/30/2021 Pfizer SARS-CoV-2 COVID-19, mRNA, LNP-S, preservative free 12/30/2020 Pneumococcal polysaccharide 23 valent (Pneumovax 23) 2yo and older 01/20/2018 Tdap Tetanus diptheria acellular pertussis (Boostrix; Adacel) 7yo and older 09/15/2021 Varicella live (Varivax) 12mo and older 04/18/2009 HEALTH MAINTENANCE: Health Maintenance Topic Date Due Hepatitis B Vaccines (3 of 3 - 3-dose series) 05/30/1998 Hepatitis A Vaccines (2 of 2 - 2-dose series) 12/16/2012 Cervical Cancer Screening: Pap Smear Never done Pneumococcal Vaccine: Pediatrics (0 to 5 Years) and At-Risk Patients (6 to 64 Years) (2 of 2 - PCV)01/20/2019 HIV Screening Never done Hepatitis C Screening Never done COVID-19 Vaccine ( season) 2024 Depression Screening 10/13/2025 Social Influencers of Health Screening 10/13/2025 Cholesterol Screening (Lipid Panel) 08/22/2026 DTaP,Tdap,and Td Vaccines (8 - Td or Tdap) 09/15/2031 HIB Vaccines Completed IPV Vaccines Completed MMR Vaccines Completed Varicella Vaccines Completed Influenza Vaccine Completed HPV Vaccines Completed Meningococcal ACWY Vaccine Aged Out Meningococcal B Vacine Aged Out RSV Immunization Patients Under 20 months Aged Out SOCIAL HISTORY: Social History Tobacco Use Smoking status: Never Smokeless tobacco: Never Substance Use Topics Alcohol use: No FAMILY HISTORY: Family History Problem Relation Name Age of Onset Migraines Mother Other (Other: hypotension) Mother Hypertension Father Asthma Sister Other (Other: thyroid cancer) Sister 9.00 Other (Other: Asthma, ADHD) Brother Diabetes Maternal Grandmother Asthma Maternal Grandmother Hypertension Maternal Grandmother Other (Other: heart disease) Maternal Grandmother Hypertension Maternal Grandfather Heart attack Paternal Grandfather Diabetes Paternal Grandfather Hypertension Paternal Grandfather Colon cancer Neg Hx Breast cancer Neg Hx ACTIVE MEDICATIONS: Outpatient Medications Marked as Taking for the 10/13/24 encounter (Office Visit) with PETRONA Fitzgerald Medication Sig Dispense Refill albuterol HFA (PROAIR HFA ; PROVENTIL HFA ; VENTOLIN HFA) 90 mcg/actuation inhaler Inhale 2 puffs by mouth every 4 (four) hours if needed (Cough or Wheezing). ALLERGIES: No Known Allergies PHYSICAL EXAM: Visit Vitals BP 125/81 (BP Location: Left arm, Patient Position: Sitting) Pulse 88 Temp 36.6 ??C (97.8 ??F) (Temporal) Resp 14 Ht 1.626 m (64 ) Wt 74.8 kg (165 lb) LMP 09/20/2024 SpO2 99% BMI 28.32 kg/m?? OB Status Having periods Smoking Status Never BSA 1.8 m?? APPEARANCE: Alert and in no acute distress EYES: PERRLA, conjunctiva and sclera normal. EARS: External ears normal. Canals clear. TMs normal. THROAT: no erythema or exudates NECK: Neck supple, no adenopathy, thyroid symmetric and of normal size HEART: RRR with normal S1 and S2 LUNG: clear to auscultation BREAST (FEMALE): Deferred to car salter ABDOMEN: Bowel sounds normoactive, no bruits, soft, non-tender, without organomegaly or palpable masses OIL WELL CABLE TOOL DRILLER (FEMALE): Deferred to car salter BACK: No pain to palpation with good flexion and extension EXTREMITIES: Extremities warm and well perfused without clubbing, cyanosis, or edema NEURO: Awake, alert and oriented x 3 SKIN: Skin color, texture, turgor normal LABS/IMAGING: Lab Results Component Value Date WBC 9.6 09/18/2024 HGB 10.5 (L) 09/18/2024 HCT 34.1 (L) 09/18/2024 MCV 78.6 (L) 09/18/2024 Lab Results Component Value Date NA 136 09/18/2024 K 3.7 09/18/2024 CO2 25 09/18/2024 CL 108 09/18/2024 BUN 14 09/18/2024 ALKPHOS 29 (L) 09/18/2024 Lab Results Component Value Date CHOL 102 08/22/2021 LDL 51 08/22/2021 HDL 38 (A) 08/22/2021 TRIG 65 08/22/2021 IMPRESSION: 1. Annual physical exam 2. Iron deficiency anemia, unspecified iron deficiency anemia type 3. Acute right ankle pain 4. Acne, unspecified acne type PLAN: 1. Health maintenance: The patient presented for an evaluation of general health. As part of this visit, we reviewed the following issues, which are considered an essential part of preventative health in this age group: - Breast cancer screening for high risk individuals - mammogram not warranted - Cervical cancer testing every 1-3 years - patient is referred for testing - Blood pressure annual screening performed - Cholesterol screening every five years - ordered - Osteoporosis prevention including calcium/vitamin D intake, weight bearing exercise & smokingcessation - Nutritional and exercise counseling - patient advised to pursue at least 30 minutes of exercise most days of the week - Screening for depression - using the PHQ-9 - One time hepatitis C screening in all adults - Recommendations about immunizations - patient is up-to-date on immunizations - Recommendation of an eye exam for glaucoma once in this age range - patient is up-to-date - Screening for substance abuse (including tobacco, alcohol, and recreational drugs) - see Substance & Sexuality section of medical record - Genetic cancer risk screening - NO INDICATION: Hereditary Cancer Syndrome Risk Assessment completed and evaluated. No indication found for genetic testing at this time. - In addition to reviewing these issues, I have reviewed the following sections of the chart: Past Medical History, Social History, and Social History - Did you have a dental visit in the last 12 months? Yes Iron deficiency anemia - continue daily iron, will repeat CBC and iron studies for monitoring Ankle pain - likely sprain. Point tenderness over right lateral malleolus, will obtain x-ray today to ensure no fracture Acne - referral to Dermatology placed Patient verbalized understanding and is in agreement with plan ADDITIONAL ORDERS: Orders Placed This Encounter Procedures XR Ankle 3+ Views Right Complete blood count Ferritin Iron and TIBC Lipid panel with reflex to direct LDL Comprehensive metabolic panel Hepatitis C antibody Ambulatory referral to Obstetrics / Gynecology Ambulatory referral to Dermatology AMB REFERRAL TO OB-OIL WELL CABLE TOOL DRILLER AMB REFERRAL TO DERMATOLOGY XR ANKLE 3+ VIEWS RIGHT Today's documentation was made using voice recognition software.This note may contain grammatical errors secondary to this software. PETRONA Fitzgerald on 10/13/2024 at 10:42 AM EDT documented in this encounter Plan of Treatment Upcoming Encounters Date Type Department Care Team (Late st Contact Info) Description 10/15/2025 8:00 AM EDT Office Visit Adult Medicine [address] [phone] Jefferson Orona MD [address] [place] [address] Scheduled Referrals Name Type Priority Associated Diagnoses Order Schedule Ambulatory referral to Obstetrics / Gynecology Outpatient Referral Routine Annual physical exam 1 Occurrences starting 10/13/2024 until 10/13/2025 Ambulatory referral to Dermatology Outpatient Referral Routine Acne, unspecified acne type 1 Occurrences starting 10/13/2024 until 10/13/2025 documented as of this encounter Results * XR Ankle 3+ Views Right [...] Signed Date: 10/13/2024 17:24 ET Workstation ID: [id number] Transcribed By: Self Edit Transcribed Date: 10/13/2024 [...] Signed Date: 10/13/2024 17:24 ET Workstation ID: [id number] Transcribed By: Self Edit Transcribed Date: 10/13/2024 17:23 ET Radha RUSS IMG XR PROCEDURES Final Resul t * Hepatitis C antibody (10/13/2024 10:52 AM EDT) Hepatitis C Antibody Negative Negative LAB CHEMISTRY METHOD 10/13/2024 1:21 PM [facility] Blood Venous blood specimen / Unknown Venipuncture / Unknown 10/13/2024 10:52 AM EDT 10/13/2024 10:52 AM EDT us Radha RUSS LAB BLOOD ORDERABLES Final Re sult [facility] [address] [place] [address], * (ABNORMAL) Comprehensive metabolic panel (10/13/2024 10:52 AM EDT) Sodium 138 133 - 145 mmol/L LAB CHEMISTRY METHOD 10/13/2024 1:06 PM [facility] Potassium 3.9 3.5 - 5.5 mmol/L LAB CHEMISTRY METHOD 10/13/2024 1:06 PM [facility] Chloride 107 96 - 110 mmol/L LAB CHEMISTRY METHOD 10/13/2024 1:06 PM [facility] CO2 26 21 - 32 mmol/L LAB CHEMISTRY METHOD 10/13/2024 1:06 PM [facility] Anion Gap 5 3 - 11 LAB CHEMISTRY METHOD 10/13/2024 1:06 PM [facility] Glucose 103(H) 70 - 100 mg/dL LAB CHEMISTRY METHOD 10/13/2024 1:06 PM [facility] BUN 10 5 - 25 mg/dL LAB CHEMISTRY METHOD 10/13/2024 1:06 PM [facility] Creatinine 0.69 0.50 - 1.10 mg/dL LAB CHEMISTRY METHOD 10/13/2024 1:06 PM [facility] eGFR 122 >=60 mL/min/1. 73m2 LAB CHEMISTRY METHOD 10/13/2024 1:06 PM [facility] Comment:Calculation based on the??Chronic Kidney Disease Epidemiology Collaboration (CKD-EPI) equation refit??without adjustment for race. BUN/Creatinine Ratio 14.5 LAB CHEMISTRY METHOD 10/13/2024 1:06 PM [facility] Calcium 9.2 8.5 - 10.5 mg/dL LAB CHEMISTRY METHOD 10/13/2024 1:06 PM [facility] AST (SGOT) 11 10 - 42 unit/L LAB CHEMISTRY METHOD 10/13/2024 1:06 PM [facility] ALT (SGPT) 20 10 - 60 unit/L LAB CHEMISTRY METHOD 10/13/2024 1:06 PM [facility] Alkaline Phosphatase 33(L) 42 - 121 unit/L LAB CHEMISTRY METHOD 10/13/2024 1:06 PM [facility] Total Protein 7.9 6.0 - 8.0 g/dL LAB CHEMISTRY METHOD 10/13/2024 1:06 PM [facility] Albumin 4.0 3.2 - 5.0 g/dL LAB CHEMISTRY METHOD 10/13/2024 1:06 PM [facility] Total Bilirubin 0.7 0.0 - 1.4 mg/dL LAB CHEMISTRY METHOD 10/13/2024 1:06 PM [facility] Blood Venous blood specimen / Unknown Venipuncture / Unknown 10/13/2024 10:52 AM EDT 10/13/2024 10:52 AM EDT us Radha RUSS LAB BLOOD ORDERABLES Final Re sult [facility] [address] [place] [address], * Lipid panel with reflex to direct LDL (10/13/2024 10:52 AM EDT) Cholesterol 121 0 - 200 mg/dL LAB CHEMISTRY METHOD 10/13/2024 1:06 PM EDT [facility] Triglycerides 45 0 - 150 mg/dL LAB CHEMISTRY METHOD 10/13/2024 1:06 PM EDT [facility] Comment:Results verified by repeat testing HDL 52 >=40 mg/dL LAB CHEMISTRY METHOD 10/13/2024 1:06 PM EDT [facility] LDL Calculated 60 0 - 100 mg/dL LAB CHEMISTRY METHOD 10/13/2024 1:06 PM EDT [facility] VLDL Cholesterol Sumit 9 mg/dL LAB CHEMISTRY METHOD 10/13/2024 1:06 PM EDT [facility] Non HDL Chol. (LDL+VLDL) 69 <145 mg/dL LAB CHEMISTRY METHOD 10/13/2024 1:06 PM EDT [facility] Chol/HDL Ratio 2.3 0.0 - 4.4 LAB CHEMISTRY METHOD 10/13/2024 1:06 PM EDT [facility] Blood Venous blood specimen / Unknown Venipuncture / Unknown 10/13/2024 10:52 AM EDT 10/13/2024 10:52 AM EDT Radha RUSS LAB BLOOD ORDERABLES Final Re sult [facility] [address] [place] [address], * Iron and TIBC (10/13/2024 10:52 AM EDT) Iron 83 40 - 150 mcg/dL LAB CHEMISTRY METHOD 10/13/2024 12:30 PM EDT [facility] TIBC 311 250 - 450 mcg/dL LAB CHEMISTRY METHOD 10/13/2024 12:30 PM EDT [facility] Iron Saturation 27 15 - 50 % LAB CHEMISTRY METHOD 10/13/2024 12:30 PM EDT [facility] Blood Venous blood specimen / Unknown Venipuncture / Unknown 10/13/2024 10:52 AM EDT 10/13/2024 10:52 AM EDT Radha RUSS LAB BLOOD ORDERABLES Final Re sult [facility] [address] [place] [address], [place] [phone] * Ferritin (10/13/2024 10:52 AM EDT) Pathologist [facility] Ferritin 47 8 - 252 ng/mL LAB CHEMISTRY METHOD 10/13/2024 12:31 PM EDT [facility] Blood Venous blood specimen / Unknown Venipuncture / Unknown 10/13/2024 10:52 AM EDT 10/13/2024 10:52 AM EDT Radha RUSS LAB BLOOD ORDERABLES Final Re sult Performing Organization Address City/[facility]/ZIP Co de Phone Number [facility] [address] [place] [address], [place] [phone] * (ABNORMAL) Complete blood count (10/13/2024 10:52 AM EDT) [facility] WBC 8.2 4.8 - 10.8 K/mcL LAB HEMETOLOGY METHOD 10/13/2024 12:28 PM EDT [facility] RBC 4.70 3.80 - 4.80 M/[facility] LAB HEMETOLOGY METHOD 10/13/2024 12:28 PM EDT [facility] Hemoglobin 11.3(L) 11.5 - 16.0 g/dL LAB HEMETOLOGY METHOD 10/13/2024 12:28 PM EDT [facility] Hematocrit 37.6 35.0 - 47.0 % LAB HEMETOLOGY METHOD 10/13/2024 12:28 PM EDT [facility] MCV 80.0 79.0 - 98.0 FL LAB HEMETOLOGY METHOD 10/13/2024 12:28 PM EDT [facility] MCH 24.0(L) 27.0 - 32.0 pcg LAB HEMETOLOGY METHOD 10/13/2024 12:28 PM EDT [facility] MCHC 30.1(L) 32.0 - 37.0 g/dL LAB HEMETOLOGY METHOD 10/13/2024 12:28 PM EDT [facility] RDW 13.7 11.0 - 15.0 % LAB HEMETOLOGY METHOD 10/13/2024 12:28 PM EDT [facility] Platelets 263 130 - 400 K/mcL LAB HEMETOLOGY METHOD 10/13/2024 12:28 PM EDT [facility] MPV 12.3(H) 7.0 - 11.0 FL LAB HEMETOLOGY METHOD 10/13/2024 12:28 PM EDT [facility] NRBC 0.0 <1.0 % LAB HEMETOLOGY METHOD 10/13/2024 12:28 PM EDT [facility] NRBC Absolute 0.00 <0.10 K/mcL LAB HEMETOLOGY [facility] Blood Venous blood specimen / Unknown Venipuncture / Unknown 10/13/2024 10:52 AM EDT 10/13/2024 10:52 AM EDT us Radha RUSS LAB BLOOD ORDERABLES Final Re sult [facility] [address] [place] [address], documented in this encounter Visit Diagnoses Diagnosis Annual physical exam- Primary Routine general medical examination at a health care facility Iron deficiency anemia, unspecified iron deficiency anemia type Acute right ankle pain Acne, unspecified acne type Acute right ankle pain documented in this encounter Discontinued Medications Medication Sig Discontinue Reason Start Date End Da te clotrimazole-betamethas one (LOTRISONE) 1-0.05 % cream APPLY TO AFFECTED AREA TWICE A DAY FOR 14 DAYS 04/03/2024 10/13/2024 documented as of this encounter Historical Medications * This list may reflect changes made after this encounter. IRON, FERROUS SULFATE, ORAL Take by mouth 1 (one) time each day. added in this encounter Additional Health Concerns Assessment Noted Time PHQ-9 Depression Total Score: 0 10/14/19 25 10:07 AM EDT documented as of this encounter Care Teams Application Support Administrator Relationship Specialty Start Date End Date Jefferson Orona MD [address] [place] [phone] PCP - General 08/02/22 documented as of this encounter
--- OUTSIDE RECORDS SUMMARY | 2024-10-17 12:38 | XMS_ITS | Encounter Summary ---
Author Organization [facility] Address [address] [place] [address] Care Team Providers Care Esol Teacher Name Role Phone Jefferson Orona MD Primary Care Pr ovider Encounter Details Date Type Department Care Team (Latest Contact Info) Description 10/13/2024 10:58 AM EDT - 10/13/2024 11:59 PM EDT Hospital Encounter [facility] [address] [place] [address] Acute right ankle pain Discharge Disposition: Home or Self Care Social [...] care for your loved ones. For example, school child care attendant or elderly care for an older adult? [...] PM EST documented as of this encounter Medications at Time of Discharge albuterol HFA (PROAIR HFA ; PROVENTIL HFA ; VENTOLIN HFA) 90 mcg/actuation inhaler Inhale 2 puffs by mouth every 4 (four) hours if needed (Cough or Wheezing). 12/24/2022 IRON, FERROUS SULFATE, ORAL Take by mouth 1 (one) time each day. documented as of this encounter Discharge Disposition Disposition Code Departure Means Destination Home or Self Care documented in this encounter Plan of Treatment Upcoming Encounters Date Type Department Care Team (Late st Contact Info) Description 10/15/2025 8:00 AM EDT Office Visit Adult Medicine [facility] [address] [place] [address] Jefferson Orona MD [address] [place] [phone] documented as of this encounter Procedures Procedure Name Priority Date/Time Associated Diagnosis Comments XR ANKLE 3+ VIEWS RIGHT Routine 10/13/2024 11:06 AM EDT Acute right ankle pain documented in this encounter Results * XR Ankle 3+ [...] Signed Date: 10/13/2024 17:24 ET Workstation ID: [id number] Transcribed By: Self Edit Transcribed Date: 10/13/2024 [...] Signed Date: 10/13/2024 17:24 ET Workstation ID: [id number] Transcribed By: Self Edit Transcribed Date: 10/13/2024 17:23 ET us Radha RUSS IMG XR PROCEDURES Final Resul t documented in this encounter Visit Diagnoses Diagnosis Acute right ankle pain documented in this encounter Additional Health Concerns Assessment Noted Time PHQ-9 Depression Total Score: 0 10/14/19 25 10:07 AM EDT documented as of this encounter Care Teams Esol Teacher Relationship Specialty Start Date End Date Jefferson Orona MD [address] [place] [id number] PCP - General 08/02/22 documented as of this encounter
[2024-10-17 12:54] VITALS: BP 110/70; PULSE 87; TEMP 36.6; O2SAT 100; BMI 29.4
--- NOTE | 2024-10-17 12:54 | AM.OFFWIN_ITS ---
Intake Vital Signs 3 10/17/24 12:54 Height 5 ft 3 in Weight 166 lb BMI 29.4 BP 110/70 Blood Pressure Location Lt brachial Position Sitting Pulse 87 Pulse Source Pulse Oximeter Temp 97.8 F Temp Source Oral Pulse Oximetry (%) 100 Oxygen Delivery Method Room Air Intake Visit Reasons: EP-rt ear earing stuck inside earlobe Patient Tobacco Use Status: Never used Tobacco Allergies No Known Allergies Allergy (Verified 10/17/24 12:54) Do you need a note to return to daycare/school/sports/work: Yes HPI EP-rt ear earing stuck inside earlobe 2 HPI0 Details Patient is a 29-year-old female comes to the walk-in clinic per her mother's advice, 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 Patient had just woken up from sleeping after a work shift, and found that her small right earring had slipped into the earring hole, and she could not get it out. She had some swelling and pressure to the right earlobe, but no discharge, bleeding, significant tenderness, or other significant associated symptoms. Reviewed past medical history, patient denies pertinent in history. [facility] Social History Patient Tobacco Use Status: Never used Tobacco Physical Exam Vital Signs: Last Vital Signs Temp 97.8 F 10/17/24 12:54 Pulse 87 10/17/24 12:54 BP 110/70 10/17/24 12:54 Pulse Ox 100 10/17/24 12:54 Oxygen Delivery Method Room Air 10/17/24 12:54 BMI result Body Mass Index 29.4 HEENT Outer ear/TM images: 2 1. Edema and palpable mass under the pierced area of the lobule. The backing of the earring visible behind the lobule, with hair and skin debris wrapped around the post. Assessment & Plan Assessment & Plan (1) Embedded earring of right ear: Code(s): S00.451A - Superficial foreign body of right ear, initial encounter Qualifiers: Encounter type: initial encounter Qualified Code(s): S00.451A - Superficial foreign body of right ear, initial encounter Plan Patient is small hearing was pulled into the earlobe, and she was unable to remove it herself, so she came into the walk-in clinic for help. I removed the hair and debris wrapped around the post behind the backing of the earring so that I could clamp it and hold it in place while removing the backing. It came off rather easily, and I was able to push the post back through the hole and the earring came out smoothly. There was no bleeding or discharge, however the earlobe was still a little swollen. I wrote her for Augmentin for cellulitis prophylaxis, and she will monitor the area and follow up if it continues to increase in swelling, warmth or redness, discharge or bleeding. In the meantime I advised that she keep it clean. She will follow up as needed. Medications: New 2 amoxicillin-pot clavulanate 875-125 mg 1 tab PO BID 10 tabs 0RF 5 days Coding Level of Care Code Est Pt Level 4 (19508) Diagnoses Embedded earring of right ear, initial encounter S00.451A Encounter type: initial encounter
== END 2024-10-17 14:43 | disposition home or self-care (01) ==
PROVIDERS: PCP Physician Assistant; Visit Provider Physician Assistant Medical
DX: S00.451A Superficial foreign body of right ear, initial encounter (principal)

== ENCOUNTER → 2024-10-17 12:36 | Outpatient (BNVA) | payer OTHER, SELFPAY | PROVIDERS: PCP Physician Assistant; Visit Provider Physician Assistant Medical ==